=== PATIENT | male | born 1985 | race Hispanic/Latino ===

== ENCOUNTER 2018-10-10 18:20 | Emergency (ER) | payer OTHER ==
[2018-10-10 19:23] LABS: HEMATOCRIT 51.7 % (39.0-50.0); HEMOGLOBIN 18.5 g/dl (14.0-18.0); IMMATURE GRANULOCYTES 0.5 % (0.0-5.0); MEAN CELL VOLUME 84.9 fL CALC (80.0-100.0); MEAN CORPUSCULAR HGB 30.4 pG CALC (26.0-32.0); MEAN CORPUSCULAR HGB CONC 35.8 g/L CALC (32.0-36.0); NEUT# 11.27 thou/uL (1.82-7.42); RED BLOOD COUNT 6.09 mill/uL (4.70-6.10); RED CELL DISTRI WIDTH 12.1 % (11.5-15.5)
[2018-10-10 19:30] LABS: ALKALINE PHOSPHATASE 108 u/l (38-126); BILIRUBIN, TOTAL 1.4 mg/dL (0.0-1.4); BUN 30 mg/dL (9-20); BUN/CREATININE RATIO 11 (12-20 (CALC)); CARBON DIOXIDE 18 mmol/l (22-30); CHLORIDE 102 mmol/l (95-108); CREATININE 2.8 mg/dL (0.7-1.3); GFR 27 ML/MIN (>=60 (CALC)); GFR FOR AFR.AMER. 32 ML/MIN (>=60 (CALC)); SGOT/AST 36 u/l (17-59); SODIUM 143 mmol/l (137-146); TOTAL PROTEIN 10.5 g/dL (6.3-8.2)
[2018-10-10 19:35] LABS: ALBUMIN > 6.0 g/dL (3.2-5.0)
[2018-10-10 19:44] LABS: ANION GAP 28 (6-22 (CALC)); POTASSIUM 5.3 mmol/l (3.5-5.1)
[2018-10-10 19:47] LABS: URINE BLOOD DIPSTICK NEGATIVE (NEGATIVE); URINE GLUCOSE - DIPSTICK NEGATIVE (NEGATIVE); URINE KETONE 15 mg/dL (NEGATIVE); URINE LEUK ESTERASE NEGATIVE (NEGATIVE); URINE NITRITE - DIPSTICK NEGATIVE (Negative); URINE PROTEIN - DIPSTICK 100 mg/dL (NEG-TRACE); URINE SPECIFIC GRAVITY >=1.030
[2018-10-10 19:49] LABS: URINE BILIRUBIN - DIPSTICK MODERATE (NEGATIVE); URINE COLOR DK. YELLOW
[2018-10-10 20:03] LABS: URINE HYALINE CAST MODERATE lpf (NONE-RARE); URINE SQUAMOUS EPITHELIAL CELL FEW EPI/hpf (0-FEW)
[2018-10-10 22:16] LABS: HEMATOCRIT 46.3 % (39.0-50.0); IMMATURE GRANULOCYTES 0.5 % (0.0-5.0); MEAN CELL VOLUME 87.7 fL CALC (80.0-100.0); MEAN CORPUSCULAR HGB 30.7 pG CALC (26.0-32.0); NEUT# 9.72 thou/uL (1.82-7.42); RED BLOOD COUNT 5.28 mill/uL (4.70-6.10); RED CELL DISTRI WIDTH 12.2 % (11.5-15.5)
[2018-10-10 22:19] LABS: HEMOGLOBIN 16.2 g/dl (14.0-18.0)
[2018-10-10 22:30] LABS: CREATININE 1.9 mg/dL (0.7-1.3); POTASSIUM 4.9 mmol/l (3.5-5.1)
[2018-10-11 00:44] VITALS: BP 105/62
== END 2018-10-11 00:50 | disposition home or self-care (01) | DRG 641 ==
LOC: ED 18:20
PROVIDERS: Emergency Medicine
DX: E86.0 Dehydration (principal); R25.2 Cramp and spasm; X30.XXXA Exposure to excessive natural heat, initial encounter; Y93.89 Activity, other specified; Y92.73 Farm field as the place of occurrence of the external cause